=== PATIENT | male | born 1985 | race Caucasian/White ===

== ENCOUNTER 2019-07-01 10:23 | Emergency (ER) | payer OTHER ==
[~2019-07-01] VITALS: Ht 182.9 cm; Wt 94.5 kg
[2019-07-01] MEDS ORDERED: SUMA50TA2 PO (10:28)
[2019-07-01] MEDS ORDERED: KETOROLAC 30 MG/ML VIAL (J1885) IV ONE (10:45)
[2019-07-01] MEDS ORDERED: NS 1,000 ML IV ONE (10:45)
[2019-07-01 10:57] LABS: BASO # 0.1 10^3/uL (0.0-0.2); BASO % 0.6 % (0.0-1.0); EOS # 0.1 10^3/uL (0.0-0.50); EOS % 1.1 % (0.0-3.0); HEMATOCRIT 43.1 % (42.0-52.0); HEMOGLOBIN 15.1 g/dl (13.5-17.5); LYMPH # 2.7 10^3/uL (1.5-4.5); LYMPH % 21.9 % (24.0-44.0); MEAN CORPUSCULAR HEMOGLOBIN 31.5 pg (27.0-33.0); MEAN CORPUSCULAR VOLUME 89.8 fl (80.0-96.0); MONO # 0.8 10^3/uL (0.0-0.8); MONO % 6.6 % (0.0-5.0); NEUTROPHILS # 8.7 10^3/uL (1.8-7.7); NEUTROPHILS % 69.4 % (36.0-66.0); PLATELET COUNT, AUTOMATED 245 10^3/uL (150-450); WHITE BLOOD COUNT 12.5 10^3/uL (4.0-10.0)
[2019-07-01 11:23] LABS: ALBUMIN 4.2 GM/DL (3.2-5.2); ALT/SGPT 49 U/L (12-78); BILIRUBIN,DIRECT < 0.1 MG/DL (0.0-0.2); BILIRUBIN,TOTAL 0.2 MG/DL (0.2-1.0); LIPASE 606 U/L (73-393); TOTAL PROTEIN 7.8 GM/DL (6.4-8.2)
--- NOTE | 2019-07-01 11:39 | REP ---
CT ABDOMEN AND PELVIS WITHOUT CONTRAST: CT abdomen and pelvis performed without oral or IV contrast. Sagittal and coronal reconstruction images are performed. Visualized lung bases demonstrate mild linear fibroatelectatic change. The liver, spleen, adrenals, pancreas and kidneys are grossly unremarkable. There is no renal, ureteral or bladder calculus. There is no hydroureteronephrosis. Gallbladder is minimally distended and grossly unremarkable. There is no abdominal aortic aneurysm. There is no adenopathy. There is no free air or free fluid. I see no bowel wall thickening. The appendix is normal. No pelvic mass is seen. Urinary bladder is minimally distended and grossly unremarkable. IMPRESSION: Negative noncontrast CT abdomen and pelvis. No renal, ureteral, or bladder calculus and no hydroureteronephrosis. No appendicitis. Electronically Signed by Marbin Rodriguez MD 07/02/2019 08:01 A
[2019-07-01] MEDS ORDERED: MORPHINE 4 MG/ML 1ML VIAL/SYRINGE (J2270) IV ONE (12:00)
--- NOTE | 2019-07-01 13:22 | REP ---
REASON: Right sided abdominal pain. PRIORS: None. Multiple ultrasonographic images of the gallbladder show it to be partially contracted. This simulates wall thickening. There is no pericholecystic edema. The common bile duct measures between 4 and 5 mm. Multiple ultrasonographic images of the liver show it to be within normal limits. The pancreas and imaged portion of the right kidney are also within normal limits. IMPRESSION: No abnormality is noted. Findings as described above. Electronically Signed by Miguel Ring DO 07/01/2019 04:12 P
[2019-07-01] MEDS ORDERED: OXYC-517 PO (13:55)
[2019-07-01] MEDS ORDERED: ONDA4TAB6 PO (13:55)
[2019-07-01 13:59] VITALS: BP 139/88
[2019-07-01] MEDS ORDERED: oxyCODONE 5MG TAB PO ONE (14:30)
== END 2019-07-01 14:38 | disposition home or self-care (01) ==
LOC: M ED 10:23
DX: K85.90 Acute pancreatitis without necrosis or infection, unspecified (principal)
CPT/HCPCS: 36415; 74176; 76705; 80047; 80076; 81001; 83690; 85025; 96374; 96375; 99284; J1885; J2270